=== PATIENT | male | born 1950 | race Two or more races ===

== ENCOUNTER 2022-12-12 16:20 | Inpatient (IN) | payer OTHER ==
[~2022-12-12] VITALS: Ht 162.6 cm; Wt 63.6 kg
[2022-12-12] MEDS ORDERED: methylPREDNISolone SOD SUCC 125 MG/2 ML VL IV ONE (18:00)
[2022-12-12] MEDS ORDERED: ALBUTEROL SULF 2.5 MG/0.5ML(0.5%) NEB SOLN HHN ONE (18:00)
[2022-12-12] MEDS ORDERED: IPRATROPIUM BROM 0.5 MG/2.5ML INH SOL HHN ONE (18:00)
[2022-12-12 18:54] LABS: Basophils # (auto) 0.1 10 ^3/uL (0-0.2); Basophils % (auto) 0.7 % (0.0-2.0); Eosinophils # (auto) 0.1 10 ^3/uL (0-0.8); Eosinophils % (auto) 1.2 % (0.0-7.0); Hematocrit 40.2 % (41.0-53.0); Hemoglobin 13.2 g/dL (13.5-17.5); Lymphocytes # (auto) 0.9 10 ^3/uL (0.4-5.4); Lymphocytes % (auto) 11.8 % (10.0-50.0); Mean Corpuscular Hemoglobin 26.8 pg (28.0-32.0); Mean Corpuscular Hgb Conc. 32.9 g/dL (32.0-36.0); Mean Corpuscular Volume 81.3 fL (80.0-100.0); Monocytes # (auto) 0.8 10 ^3/uL (0-1.3); Monocytes % (auto) 9.9 % (0.0-12.0); Neutrophils # (auto) 6.1 10 ^3/uL (1.6-8.6); Neutrophils % (auto) 76.4 % (37.0-80.0); Red Blood Cells 4.94 10^6/uL (4.5-5.90)
[2022-12-12 19:10] LABS: Albumin 3.5 g/dL (3.4-5.0); BUN/Creatinine Ratio 19.8; Potassium 4.4 mmol/L (3.5-5.1)
[2022-12-12 19:23] LABS: Bilirubin, Total 0.5 mg/dL (0.2-1.0); Total Protein 7.1 g/dL (6.4-8.2)
[2022-12-12] MEDS ORDERED: levoFLOXacin 500MG 100 ML IV ONE (19:30)
[2022-12-12 19:59] LABS: INR 0.93 (0.9-1.15); Partial Thromboplastin Time 28.4 sec (24.6-33.4)
[2022-12-12] MEDS ORDERED: NITROGLYCERIN 0.4 MG SL TAB SL PRN (20:45)
[2022-12-12] MEDS ORDERED: ONDANSETRON HCL 4 MG/2 ML VIAL IV PRN (20:45)
[2022-12-12] MEDS ORDERED: MORPHINE SULFATE INJ 2 MG/ml SYRG IV PRN (20:45)
[2022-12-12] MEDS ORDERED: DOCUSATE SOD 100 MG CAP PO PRN (20:45)
[2022-12-12] MEDS ORDERED: ACETAMINOPHEN 325 MG TAB PO PRN (20:45)
[2022-12-12 20:57] VITALS: BP 130/74
[2022-12-12] MEDS ORDERED: MELATONIN 5 MG TAB PO PRN (21:30)
[2022-12-12] MEDS: methylPREDNISolone SOD SUCC 40 MG/ML VL IV SCH (22:00)
[2022-12-13] MEDS: ALBUTEROL SULF 2.5 MG/0.5ML(0.5%) NEB SOLN NEB PRN ×4 (00:18→20:00)
[2022-12-13] MEDS: IPRATROPIUM BROM 0.5 MG/2.5ML INH SOL NEB PRN ×4 (00:18→20:00)
[2022-12-13] MEDS: GABAPENTIN 300 MG CAP PO SCH ×4 (01:17→21:43)
[2022-12-13] MEDS: DONEPEZIL HYDROCHLORIDE 5 MG TAB PO SCH ×2 (01:17→21:43)
[2022-12-13] MEDS: SODIUM CHLOR 0.9% PF (SALINE LOCK) 10ML VIAL/SYR IV SCH ×4 (02:55→21:44)
[2022-12-13 05:39] LABS: Basophils # (auto) 0 10 ^3/uL (0-0.2); Basophils % (auto) 0.1 % (0.0-2.0); Eosinophils # (auto) 0 10 ^3/uL (0-0.8); Eosinophils % (auto) 0.2 % (0.0-7.0); Hematocrit 35.7 % (41.0-53.0); Hemoglobin 11.8 g/dL (13.5-17.5); Lymphocytes # (auto) 0.6 10 ^3/uL (0.4-5.4); Mean Corpuscular Hgb Conc. 33.1 g/dL (32.0-36.0); Mean Corpuscular Volume 81.5 fL (80.0-100.0); Monocytes # (auto) 0.2 10 ^3/uL (0-1.3); Monocytes % (auto) 2.9 % (0.0-12.0); Neutrophils # (auto) 7.2 10 ^3/uL (1.6-8.6); Neutrophils % (auto) 89.8 % (37.0-80.0); Red Blood Cells 4.37 10^6/uL (4.5-5.90); Red Cell Distribution Width 15.9 % (11.8-14.3)
[2022-12-13 06:20] LABS: Albumin 3.1 g/dL (3.4-5.0); BUN/Creatinine Ratio 25.9; Bilirubin, Total 0.5 mg/dL (0.2-1.0); Calcium 8.7 mg/dL (8.5-10.1); Potassium 4.2 mmol/L (3.5-5.1)
[2022-12-13] MEDS ORDERED: PANTOPRAZOLE 40 MG/10 ML VIAL INJ IV SCH (10:00)
[2022-12-13] MEDS: methylPREDNISolone SOD SUCC 40 MG/ML VL IV SCH ×2 (10:25→21:43)
[2022-12-13] MEDS: DULoxetine HCL 30 MG CAP PO SCH (10:25)
[2022-12-13] MEDS: LISINOPRIL 10 MG TAB PO SCH (10:25)
[2022-12-13] MEDS: HYDROcodone-ACET 5/325MG TAB PO PRN (16:26)
[2022-12-13] MEDS ORDERED: PROMETHAZINE HCL 6.25 MG/5 ML ORAL SYRUP PO PRN (17:15)
[2022-12-13] MEDS ORDERED: guaiFENesin 200 MG/10 ML UD PO PRN (17:15)
[2022-12-14] MEDS: HYDROcodone-ACET 5/325MG TAB PO PRN (00:48)
[2022-12-14 01:37] LABS: Urine Bacteria NONE SEEN /hpf (None Seen); Urine Blood Negative /uL (Negative); Urine Hyaline Cast FEW /lpf (0 - 2); Urine Mucus FEW (None Seen); Urine WBC 6 /hpf (0 - 3)
[2022-12-14] MEDS: GABAPENTIN 300 MG CAP PO SCH ×2 (06:32→14:53)
[2022-12-14] MEDS: SODIUM CHLOR 0.9% PF (SALINE LOCK) 10ML VIAL/SYR IV SCH ×2 (06:32→14:53)
[2022-12-14 06:33] VITALS: BP 104/58
[2022-12-14] MEDS: ALBUTEROL SULF 2.5 MG/0.5ML(0.5%) NEB SOLN NEB PRN ×2 (08:37→12:12)
[2022-12-14] MEDS: IPRATROPIUM BROM 0.5 MG/2.5ML INH SOL NEB PRN ×2 (08:37→12:12)
[2022-12-14] MEDS: DULoxetine HCL 30 MG CAP PO SCH (10:16)
[2022-12-14] MEDS: LISINOPRIL 10 MG TAB PO SCH (10:16)
[2022-12-14] MEDS ORDERED: methylPREDNISolone SOD SUCC 125 MG/2 ML VL IV SCH (14:00)
[2022-12-14] MEDS ORDERED: DOXY-332 PO (15:11)
[2022-12-14] MEDS ORDERED: ALB5IS NEB (15:11)
[2022-12-14] MEDS ORDERED: IPR002IS NEB (15:11)
[2022-12-14] MEDS ORDERED: METH4PAK PO (15:11)
== END 2022-12-14 15:25 | disposition home or self-care (01) | DRG 189 ==
LOC: EDBD 16:20 → ER 16:20 → TELE 20:38
PROVIDERS: ADMIT Nurse Practitioner Family; ATTEND Internal Medicine
DX: J96.21 Acute and chronic respiratory failure with hypoxia (principal); J44.1 Chronic obstructive pulmonary disease with (acute) exacerbation; E78.5 Hyperlipidemia, unspecified; I10 Essential (primary) hypertension; K21.9 Gastro-esophageal reflux disease without esophagitis; Z20.822 Contact with and (suspected) exposure to COVID-19; Z99.81 Dependence on supplemental oxygen; Z88.0 Allergy status to penicillin
CPT/HCPCS: 36415; 71045; 80053; 81001; 83605; 83880; 84484; 85025; 85610; 85730; 87040; 87426; 93005; 94640; 94644; C9113; G0378; J1956